=== PATIENT | male | born 1975 | race Caucasian/White ===

== ENCOUNTER 2022-12-06 03:08 | Day surgery (SDC) | payer BC, SELFPAY ==
[2022-12-05 13:54] VITALS: BMI 38.0
--- NOTE | 2022-12-05 13:59 | PC.NURSE ---
Report to the Outpatient Waiting Room, entrance under the green pavilion located off [facility], at time 0900 on date 12/06/22. Planned Procedure Time: 1100. Time changes happen often and if your time is changed the preop area will call you the afternoon before. - You and your visitor will be asked to self-screen and do not enter if you have any COVID symptoms. - A mask is optional within the hospital at this time. Patients may have clear liquids (water, carbonated beverages, clear teas, apple juice) until 3 hours prior to surgery with a maximum of 20 ounces. - No food from midnight until time of surgery Take the following medications with a SIP of water the morning of surgery: PAIN PILL IF NEEDED DO NOT STOP ANY OF YOUR OTHER PRESCRIPTION MEDICATIONS PRIOR TO SURGERY ?EXCEPT THE FOLLOWING Medications to discontinue per physician: N/A Date to take last dose: N/A Please no make-up, nail pakistani, hairspray, perfume, deodorant, or body powder the day of surgery. No jewelry (including any body piercings) or valuables the day of surgery, leave them at home. Please take a shower or bath the night before, or the morning of, surgery with an antibacterial soap. Wear comfortable, loose fitting clothing. - Jewelry must be removed prior to entering the operating room. Rings and piercings that are not removed may be cut off. - The hospital will not accept responsibility for valuables. - Please leave all valuables, including medications, at home the day of surgery. If you are going home after surgery, a licensed speedboat driver must drive you home. - NO public transportation without another adult if you receive anesthesia. - We recommend that an adult stay with you for 24 hours following discharge. - We also recommend that you do not drive, make important decision, drink alcoholic beverages, or take any drugs that were not prescribed by your health care provider for at least 24 hours after your discharge time. Follow any additional instructions given to you from your surgeon. If you or anyone in your household have experienced Covid symptoms in the past week, please notify your surgeon or the nurse liaison at the phone number below for possible testing. Telephone instructions given to FOIRELLA DELGADO and asked if any additional questions and then verbalized understanding. Patient advised to call surgeon office or pre surgery nurse liaison [phone] if any additional questions.
[2022-12-06] VITALS (8 sets, daily range): BP systolic 101–149; BP diastolic 62–99; PULSE 67–83; RESP 12–18; TEMP 36.1–37.3; O2SAT 96–100; BMI 38.5
--- NOTE | ~2022-12-06 | XR_ITS ---
EXAMINATION: XR stent kub - surgery DATE: 12/06/2022 12:39 INDICATION: Right ureteral stone. TECHNIQUE: 2 intraoperative fluoroscopic views of the abdomen and pelvis were obtained. I was not pre sent. Fluoroscopy exposure time was 52 seconds. COMPARISON: None. FINDINGS: There is a right internal ureteral stent in expected position. IMPRESSION: 1. Right internal ureteral stent in expected position. Reviewed, dictated and finalized at location A.
--- NOTE | 2022-12-06 06:36 | WPDHPUPDATE1 ---
History and Physical Update Update Date/Time: 12/06/22 06:36 History and Physical has been reviewed, including an updated exam of the patient. There are NO changes in the patient's condition. Risks, benefits, and alternatives have been discussed and questions answered. Patient agrees to proceed with procedure.
--- NOTE | 2022-12-06 08:47 | ECG_ITS ---
Measurements Intervals [place] Rate: 71 P: 16 DE: 215 QRS: 7 QRSD: 100 T: -9 QT: 379 QTc: 412 Interpretive Statements SINUS RHYTHM WITH FIRST DEGREE AV BLOCK CONSIDER INFERIOR INFARCT, AGE INDETERMINATE BORDERLINE T WAVE ABNORMALITY- ANTERIOR LEADS ABNORMAL ECG NO PREVIOUS ECG AVAILABLE FOR COMPARISON Electronically Signed On 12-06-2022 9:51:51 CDT by Kit Crespo D.O.
[2022-12-06] MEDS: LACTATED RINGERS 1,000 ML 30 ML IV CONT ×2 (09:38→13:55)
[2022-12-06 09:50] LABS: Anion Gap 7 mmol/L (8-16); Blood Urea Nitrogen 12 mg/dL (9-20); Calcium 9.4 mg/dL (8.4-10.2); Carbon Dioxide 30 mmol/L (22-30); Chloride 102 mmol/L (98-107); Estimated CRCL calculation 120 ml/min; Estimated Glomerular Filt Rate > 60; Glucose 144 mg/dL (65-110); Potassium 3.7 mmol/L (3.4-5.0); Sodium 139 mmol/L (137-145)
--- NOTE | 2022-12-06 11:04 | WPDANESEPPF ---
Anes - Initial Pre Proc Eval Procedure: Operation Date: 12/06/22 11:00 Proposed Procedures p Cystoscopy, Right Ureteroscopy with Stone Extraction, Possible Laser Lithotripsy, Possible Right Stent Placement, Possible Right Retrograde Pyelogram - Tyrell Kinsey MD Date/Time: 12/06/22 11:04 Surgeon: Tyrell Kinsey MD Pre Op Diagnosis: right ureteral stone Patient Data Age: 46 Gender: M Height: 1.78 m Weight: 122 kg Last Vital Signs Temp 36.1 C L 12/06/22 09:10 Pulse 83 12/06/22 09:10 Resp 18 12/06/22 09:10 BP 149/98 H 12/06/22 09:10 Pulse Ox 99 12/06/22 09:10 O2 Del Method Room Air 12/06/22 09:10 Allergies Allergy/AdvReac Type Severity Reaction Status Date / Time No Known Allergies Allergy Verified 12/06/22 09:43 Home Medications Medication Instructions Recorded Confirmed Type hydrochlorothiazide 12.5 mg capsule 12.5 mg PO DAILY 12/05/22 12/05/22 History hydrocodone 5 mg-acetaminophen 325 1 tablet PO Q6H PRN Pain 12/05/22 12/05/22 History mg tablet losartan 100 mg tablet 100 mg PO DAILY 12/05/22 12/05/22 History metformin 500 mg tablet 500 mg PO BID 12/05/22 12/05/22 History ondansetron 4 mg disintegrating 4 mg PO Q8H PRN Nausea And Vomiting 12/05/22 12/05/22 History tablet tamsulosin 0.4 mg capsule 0.4 mg PO DAILY 12/05/22 12/05/22 History Laboratory Tests 12/06/22 09:33 Sodium 139 mmol/L (137-145) Potassium 3.7 mmol/L (3.4-5.0) Chloride 102 mmol/L (98-107) Carbon Dioxide 30 mmol/L (22-30) Anion Gap 7 L mmol/L (8-16) BUN 12 mg/dL (9-20) Creatinine 0.90 mg/dL (0.7-1.3) Estim Creat Clear Calc 120 ml/min Estimated GFR > 60 (59 - ) Glucose 144 H mg/dL (65-110) Calcium 9.4 mg/dL (8.4-10.2) Patient hx anesthesia problems: none Family hx anesthesia problems: none Results Review: All pre-operative results and documents have been reviewed as part of the pre-operative evaluation. [facility] Past Medical History Medical History (Updated 12/06/22 @ 11:05 by Shankar Zhang DO) Hypertension Pre-diabetes Social History Social History Smoking status: Never smoker Alcohol intake: never Substance use: never Substance use type: does not use Living arrangements: alone Spiritual care concerns: No Anes - Eval Final PreProcedure Day of Procedure 12/06/22 11:04 Patient weight: obese Heart: regular rate and rhythm Lungs: clear to auscultation Airway: Mallampati scale class II Neurological: alert and oriented Last oral intake: >/= 8 hours ASA classification: III Emergent: no Anesthetic plan: proceed Anesthesia type and monitoring: general LMA and standard monitoring Results Review: All pre-operative results and documents have been reviewed as part of the pre-operative evaluation. Informed Consent: The patient's anesthetic plan and its attendant risks and benefits were discussed with the patient/family/POA. Questions were solicited and answers provided to the satisfaction of the patient/family/POA.
--- NOTE | 2022-12-06 11:34 | P.HP_ITS ---
History of Present Illness History of Present Illness Consent: Risks, benefits, and alternatives have been discussed and questions answered. Patient agrees to proceed with procedure. Chief complaint: right ureteral stone Narrative: Kevyn Muñiz is a 46 year old male with a history of urolithiasis in the remote past who has had a 5-6 day history of intermittent right flank pain. Imaging demonstrates a 5-6 mm right distal ureteral calculus. After discussion of options he elects for cystoscopy with right ureteroscopy with stone extraction, possible laser lithotripsy, possible retrograde pyelography and stent placement Review of Systems Review of Systems: All systems reviewed & are unremarkable except as noted in HPI and below PMFSH Past Medical History Medical History (Updated 12/06/22 @ 11:35 by Tyrell Kinsey MD) Hypertension Pre-diabetes Social History Social History Smoking status: Never smoker Alcohol intake: never Substance use: never Substance use type: does not use Living arrangements: alone Spiritual care concerns: No Meds Home Medications and Allergies Home Medications Medication Instructions Recorded Confirmed Type hydrochlorothiazide 12.5 mg capsule 12.5 mg PO DAILY 12/05/22 12/05/22 History hydrocodone 5 mg-acetaminophen 325 1 tablet PO Q6H PRN Pain 12/05/22 12/05/22 History mg tablet losartan 100 mg tablet 100 mg PO DAILY 12/05/22 12/05/22 History metformin 500 mg tablet 500 mg PO BID 12/05/22 12/05/22 History ondansetron 4 mg disintegrating 4 mg PO Q8H PRN Nausea And Vomiting 12/05/22 12/05/22 History tablet tamsulosin 0.4 mg capsule 0.4 mg PO DAILY 12/05/22 12/05/22 History Allergies Allergy/AdvReac Type Severity Reaction Status Date / Time No Known Allergies Allergy Verified 12/06/22 09:43 Vital Signs Vital Signs - 24 hr 12/06/22 09:10 Temperature 97.0 F L Pulse Rate 83 Respiratory Rate 18 Blood Pressure 149/98 H Pulse Oximetry 99 Oxygen Delivery Room Air Exam Const: General: no acute distress Resp: Effort & Inspection: normal respiratory effort GI: Inspection: non-distended GI Palp: No abdominal tenderness and No Guarding due to palpation present (GI) Auscultation: normal bowel sounds Assessment and Plan Assessment and plan (1) Right ureteral stone: Code(s): N20.1 - Calculus of ureter Status: Acute Assessment and Plan: * Cystoscopy with right ureteroscopy and stone extraction, possible retrograde pyelography, laser lithotripsy and stent placement
[2022-12-06] MEDS: ceFAZolin 3 GM/D5W 100 ML 100 ML IVPB (11:38)
--- NOTE | 2022-12-06 12:35 | W.PM.PROC2 ---
Procedure Note - Detailed Date of Procedure 12/06/22 Pre-op Diagnosis Right ureteral stone Post-op Diagnosis Same Procedure Performed Cystoscopy, right ureteroscopy with laser lithotripsy, stone extraction and stent placement Surgeon Tyrell Kinsey MD Anesthesia General Description of Procedure Patient is brought to the operative suite was prepped draped in routine sterile fashion while in dorsal lithotomy position after the uneventful induction of a general anesthetic. Cystoscopy is undertaken with a 19 F rigid cystoscope. There was no urethral stricture and no intravesical pathology of significance. Specifically there was no areas of hyperemia or neoplasm in the mucosa. 0.035 in glidewire was advanced in the right renal pelvis and the distal ureter was dilated with an 8 F 10 F dilator. Ureteroscopy was 1st undertaken with a short tapered semi-rigid ureteral scope to the iliac vessels. I can not identify a stone but do find the stone with flexible ureteroscopy up in the renal pelvis. Using a 200 micron holmium laser dusting mode stone was fractured into small pieces all of which were extracted with a 1.9 F disposable stone basket. There was significant edema in the ureter where the stone had been impacted so I opted to place a 4.8 F double-J ureteral stent. Scopes wires removed he was taken recovery room good condition Drains No Packing No Pathology Yes Complications No immediate complications Condition Stable Disposition PACU
[2022-12-06] MEDS: KETOROLAC 30 MG/ML VIAL (*BKC) IV PUSH (12:48)
[2022-12-06 13:25] LABS: Glucose Point of Care 127 mg/dl (65-105)
[2022-12-06] MEDS: ONDANSETRON INJ 4 MG/2 ML VIAL IV PUSH (13:44)
[2022-12-06] MEDS: fentaNYL CITRATE INJ (*CRX) 100 MCG/2 ML VIAL 25 MCG IV PUSH ×2 (13:55→13:59)
[2022-12-06] MEDS: oxyCODONE HCL (*CRX) 5 MG TAB IR PO (14:29)
== END 2022-12-06 15:05 | disposition home or self-care (01) ==
PROVIDERS: Anesthesiology; PCP Family Medicine; Visit Provider Urology
PROC: (CPT 52352; principal; 2022-12-06 11:00)
DX: N20.1 Calculus of ureter (principal); I10 Essential (primary) hypertension; R73.03 Prediabetes; Z79.84 Long term (current) use of oral hypoglycemic drugs; E66.9 Obesity, unspecified; Z68.38 Body mass index [BMI] 38.0-38.9, adult
CPT/HCPCS: 52356; 36415; 80048; 82365; 82948; 88300; 93005; A9270; C1769; C2617; J0690; J1885; J2250; J2405; J2704; J3010; J7120